=== PATIENT | female | born 1950 | race Caucasian/White ===

== ENCOUNTER 2017-10-18 13:25 | Emergency (ER) | payer OTHER, SELFPAY ==
[2017-10-18 13:41] VITALS: BP 150/88; PULSE 65; RESP 18; TEMP 36.4; O2SAT 98; BMI 25.0
--- NOTE | 2017-10-18 13:42 | DI.RAD.S_ITS ---
PROCEDURE: XR WRIST LT MIN 3V INDICATIONS: fall from hammock, left lateral wrist pain TECHNIQUE: 4 views of the wrist were acquired. COMPARISON: None. FINDINGS: Bones: Subtle cortical irregularity in the dorsal aspect of the distal radial metaphysis. No suspicious bony lesions. Scaphoid view: Scaphoid appears intact Soft tissues: No suspicious soft tissue calcifications. IMPRESSION: Possible undisplaced distal radial metaphyseal fracture. Dictated by: Janis Kilgore M.D. on 10/18/2017 at 14:15 Approved by: Janis Kilgore M.D. on 10/18/2017 at 14:16
--- NOTE | 2017-10-18 13:46 | PC.NURSE ---
lt lateral wrist pain after fall from hammock on to outstretched lt arm, distal cms, tender over lt lateral wrist/forearm, no visible sign of injury
--- NOTE | 2017-10-18 13:55 | ED.UPPEXIN ---
HPI - Extremity Injury (Upper) General Chief Complaint: Extremity Injury, Upper Stated Complaint: left arm pain Time Seen by Provider: 10/18/17 13:46 Source: patient Mode of arrival: ambulatory Limitations: no limitations History of Present Illness HPI narrative: 67-year-old female here for evaluation of left wrist injury. Patient states that she tried to sit on a Hammock and fell out landing on her left wrist with her wrist in extension. Did not hit her head. No shoulder pain no elbow pain. Does have pain with flexion extension of left wrist but especially with movement of her thumb. Related Data Home Medications Medication Instructions Recorded Confirmed albuterol sulfate [Ventolin HFA] 0 puff INH Q4HP #0 11/12/12 tolterodine [Detrol LA] 4 mg PO QDAY #0 11/12/12 Lactobacillus acidophilus 1 tab PO QDAY #0 04/04/16 ascorbic acid (vitamin C) 500 mg PO QDAY #0 04/04/16 calcium carbonate 650 mg PO #0 04/04/16 cholecalciferol (vitamin D3) 1,000 unit PO QDAY #0 04/04/16 [Vitamin D3] fluoxetine 20 mg PO QDAY #0 04/04/16 magnesium oxide 400 mg PO #0 04/04/16 meloxicam 15 mg PO QDAY #0 04/04/16 Allergies Allergy/AdvReac Type Severity Reaction Status Date / Time promethazine [PROMETHAZINE] Allergy Unknown ITCHING Unverified 07/15/17 11:45 UNKNOWN SEVERITY PER PT codeine [CODEINE] AdvReac Severe VOMITING Unverified 07/15/17 11:45 oxycodone [OXYCODONE] AdvReac Severe SEVERE Unverified 07/15/17 11:45 VOMITING hydrocodone [HYDROCODONE] AdvReac Mild VOMITING Unverified 07/15/17 11:45 Review of Systems Constitutional Denies fever(s) Musculoskeletal Comments: Left wrist pain Integumentary/Breasts Denies lesions and Denies rash Neurologic Comments: No numbness or tingling left hand Hematologic/Lymphatic Denies easy bleeding Exam Initial Vital Signs Initial Vital Signs: Vital Signs Temperature 97.6 F 10/18/17 13:41 Pulse Rate 65 10/18/17 13:41 Respiratory Rate 18 10/18/17 13:41 Blood Pressure 150/88 H 10/18/17 13:41 Pulse Oximetry 98 07/15/18 13:41 Const General: cooperative, healthy appearing, comfortable, well developed, well groomed and No acute distress Orientation: alert, awake and oriented x3 HENMT Head: normal to inspection, normocephalic and atraumatic Resp Effort & Inspection: normal respiratory effort Cardio Pulses: radial pulses present on the left Skin Lesions: no lesions Rashes: no rashes Neuro Other: Sensation intact to light touch left upper extremity Extrem Other: Left shoulder unremarkable, left elbow unremarkable, patient able to pronate and supinate without problems, patient with pain with flexion and extension of the left wrist and also with movement of the left thumb. Patient does have tenderness over the distal radius, no gross deformities, Course Orders Ordered: ED Orders 10/18/17 13:42 XR wrist LT min 3V Stat Vital Signs - 8 hr 10/18/17 13:41 Temperature 97.6 F Pulse Rate 65 Respiratory Rate 18 Blood Pressure 150/88 H Pulse Oximetry 98 MDM - Extremity Injury (Upper) Imaging Data Left wrist: Radiologist's impression: ROCEDURE: XR WRIST LT MIN 3V INDICATIONS: fall from hammock, left lateral wrist pain TECHNIQUE: 4 views of the wrist were acquired. COMPARISON: None. FINDINGS: Bones: Subtle cortical irregularity in the dorsal aspect of the distal radial metaphysis. No suspicious bony lesions. Scaphoid view: Scaphoid appears intact Soft tissues: No suspicious soft tissue calcifications. IMPRESSION: Possible undisplaced distal radial metaphyseal fracture. Dictated by: Janis Kilgore M.D. on 10/18/2017 at 14:15 MDM Narrative Medical decision making narrative: Patient is neurovascularly intact. History and physical exam consistent with a distal radius fracture which was seen on the x-ray. Patient is placed in a thumb spica splint. She already has an orthopedic doctor that she sees on a regular basis. She was instructed to call that provider tomorrow for a follow-up. She was given return precautions. She expressed understanding and agreement with plan Discharge Plan Departure Patient Disposition: Home, Self-Care Clinical Impression: Distal radius fracture, left Instructions: DI for Wrist Fracture, How to Take Care of Your Splint Activity Restrictions/Additional Instructions: Tomorrow call the [facility] group at [phone] to schedule a follow-up. Keep the splint on and keep it clean and keep it dry. Keep her arm elevated as much as possible. Return to the emergency department for any new or worsening symptoms Prescriptions: No Action albuterol sulfate [Ventolin HFA] 90 MCG/PUFF HFA aerosol inhaler INH Q4HP Qty: 0 RF: 0 tolterodine [Detrol LA] 4 MG capsule,extended release 24hr 4 mg PO QDAY Qty: 0 RF: 0 meloxicam 15 MG tablet 15 mg PO QDAY Qty: 0 RF: 0 ascorbic acid (vitamin C) 500 MG tablet 500 mg PO QDAY Qty: 0 RF: 0 fluoxetine 20 MG capsule 20 mg PO QDAY Qty: 0 RF: 0 cholecalciferol (vitamin D3) [Vitamin D3] 1,000 UNIT tablet 1,000 unit PO QDAY Qty: 0 RF: 0 calcium carbonate 650 MG tablet 650 mg PO Qty: 0 RF: 0 Lactobacillus acidophilus 1 EACH capsule 1 tab PO QDAY Qty: 0 RF: 0 magnesium oxide 400 MG capsule 400 mg PO Qty: 0 RF: 0
== END 2017-10-18 14:48 | disposition home or self-care (01) ==
PROVIDERS: Emergency Provider Emergency Medicine; Family Provider Family Medicine; PCP Family Medicine
DX: S52.502A Unspecified fracture of the lower end of left radius, initial encounter for closed fracture (principal); W17.89XA Other fall from one level to another, initial encounter
CPT/HCPCS: 29125; 73110; 99282; 99283

== ENCOUNTER → 2018-06-09 10:26 | Outpatient (CLI) | payer OTHER, SELFPAY ==
--- NOTE | 2018-06-09 | DI.MG.S_ITS ---
BILATERAL DIGITAL SCREENING MAMMOGRAM 3D/2D WITH CAD: 06/09/2018 CLINICAL: Routine screening. Family history of breast cancer. Comparison is made to exam dated: 08/26/2012 mammogram - [facility]. There are scattered fibroglandular elements in both breasts. Current study was also evaluated with a Computer Aided Detection (CAD) system. No significant masses, calcifications, or other findings are seen in either breast. There has been no significant interval change. IMPRESSION: NEGATIVE There is no mammographic evidence of malignancy. A 1 year screening mammogram is recommended. This exam was interpreted at Station ID: [id number]. NOTE: For mammograms, a report in lay terms will be sent to the patient. Approximately 15% of breast malignancies will not be visualized mammographically. In the management of a palpable breast mass, a negative mammogram must not discourage biopsy of a clinically suspicious lesion. Electronically Signed By: Contreras hayward/tiffany:06/09/2018 12:04:45 letter sent: Normal Exam ACR BI-RADS Category 1: Negative [id number]
== END ==
PROVIDERS: Family Provider Family Medicine; PCP Family Medicine; Visit Provider Family Medicine
DX: Z12.31 Encounter for screening mammogram for malignant neoplasm of breast (principal); Z80.3 Family history of malignant neoplasm of breast
CPT/HCPCS: 77063; 77067

== ENCOUNTER → 2018-08-16 14:14 | Outpatient (CLI) | payer OTHER, SELFPAY ==
--- NOTE | 2018-08-16 | DI.US.S_ITS ---
PROCEDURE: US ABD AORTA ANEURYSM SCREEN INDICATIONS: SCREENING FOR CARDIOVASCULAR DISEASE TECHNIQUE: Real time scanning was performed of the aorta and iliac arteries, with image documentation. COMPARISON: [facility], , ABDOMEN COMPLETE, 02/24/2011, 15:50. FINDINGS: Aorta: Proximal aortic diameter measures 2.2 cm. Mid-aorta measures 1.8 cm. Distal aortic diameter is 1.9 cm. Vascular calcifications indicate atherosclerosis. Iliac arteries: Right common iliac artery measures 1.5 cm. Left common iliac artery measures 1.5 cm. IMPRESSION: No abdominal aortic or proximal common iliac artery aneurysm. Dictated by: Ayush Sterling [facility] Interpreted: Myrna Gallo MD on 08/16/2018 at 15:49 Approved by: Myrna Gallo M.D. on 08/16/2018 at 16:18
== END ==
PROVIDERS: Family Provider Family Medicine; PCP Family Medicine; Visit Provider Nurse Practitioner Family
DX: Z13.6 Encounter for screening for cardiovascular disorders (principal)
CPT/HCPCS: 76706

== ENCOUNTER → 2019-01-12 13:04 | Outpatient (CLI) | payer OTHER, SELFPAY | PROVIDERS: PCP Family Medicine; Visit Provider Family Medicine | DX: Z13.820 Encounter for screening for osteoporosis (principal); Z78.0 Asymptomatic menopausal state; E11.9 Type 2 diabetes mellitus without complications; R29.890 Loss of height | CPT/HCPCS: 77080; 77081 ==

== ENCOUNTER → 2019-01-25 12:41 | Outpatient (CLI) | payer OTHER, SELFPAY ==
--- NOTE | 2019-01-25 | DI.MRI.S_ITS ---
PROCEDURE: MR LUMBAR SPINE WO/W CON INDICATIONS: Spinal stenosis, lumbar region with neurogenic cla TECHNIQUE: Noncontrast sagittal T1 spin echo and T2 fast spin echo, sagittal STIR, axial T1 and T2 fast spin echo through the lumbar spine. In cases with scoliosis, additional coronal T2 fast spin echo may be performed. After the administration of contrast, sagittal and axial T1 spin echo with fat saturation through the lumbar spine. COMPARISON: [facility], , MR LUMBAR SPINE WO/W CON, 08/13/2017, 14:45. [facility], MR, L-SPINE WITHOUT CONTRAST, 11/04/2016, 13:46. [facility], MR, L-SPINE WITHOUT CONTRAST, 06/25/2017, 9:22. [facility], MR, L-SPINE WITHOUT CONTRAST, 08/26/2012, 14:54. [facility], MR, L-SPINE WITHOUT CONTRAST, 04/04/2014, 10:13. [facility], CR, L-SPINE MINIMUM 4 VIEWS, 04/04/2014, 10:36. FINDINGS: Image quality: Diagnostic, with note made of motion artifact. Alignment and curvature: There is normal bony alignment. Marrow: Marrow is of normal overall signal. No acute vertebral body compression fractures. No suspicious marrow enhancement. Bone cement is again seen within L2. There is a Schmorl's node seen at the superior endplate of L2. There is a mild degree of edema seen along the posterior superior left aspect of the L3 vertebral body, with a mild degree of enhancement seen. Spinal cord: Conus medullaris terminates at the L1 level. Visualized spinal cord demonstrates normal signal, without suspicious seen. Paraspinous soft tissues: No paravertebral masses or abnormal enhancement. T12-L1: No significant abnormality is seen. L1-L2: Mild loss of disc height is seen. Loss of disc signal is seen. [id number] disc bulge is seen. There is mild right-sided and moderate left-sided neural foraminal narrowing seen. Mild to moderate central canal narrowing is seen. No significant change from the prior. L2-L3: Moderate loss of disc height is seen. Loss of disc signal is seen. Moderate disc bulge is seen, which is eccentric to the left. There is at least moderate bilateral facet hypertrophy seen. There is moderate hypertrophy of the ligamentum flavum. There is minimal right-sided and moderate left-sided neural foraminal narrowing seen. Moderate central canal narrowing is seen. Stable from the prior study. L3-L4: Mild to moderate loss of disc height and disc signal are seen. Moderate generalized disc bulge is seen. Moderate facet joint hypertrophy is seen. There is moderate right-sided and mild to moderate left-sided neural foraminal narrowing seen. When comparison is made with the prior examination, these findings are similar. L4-L5: Mild to moderate loss of disc height and disc signal are seen. Moderate disc bulge is seen, which is eccentric to the right. There is moderate bilateral facet hypertrophy seen, right worse than left. There is moderate to severe right-sided neural foraminal narrowing seen, with associated mild compression upon the exiting right or nerve root. There is mild left-sided neural foraminal narrowing seen. Mild central canal narrowing is seen. No significant change from the prior. L5-S1: Postoperative changes are seen at this level, prior left femoral neck. Mild to moderate loss of disc height and disc signal are seen. Moderate disc bulge is seen, which is eccentric to the left. There is a central/left disc protrusion seen. There is moderate left-sided and no significant right-sided neural foraminal narrowing seen. Moderate central canal narrowing is seen. When comparison is made with the prior examination, these findings are similar. IMPRESSION: Multiple levels of degenerative change are seen, which are similar to the prior examination. Bone cement within L2. Dictated by: Enoc Phan M.D. on 01/25/2019 at 15:24 Approved by: Enoc Phan M.D. on 01/25/2019 at 15:32
== END ==
PROVIDERS: PCP Family Medicine; Visit Provider Orthopaedic Surgery
DX: M48.062 Spinal stenosis, lumbar region with neurogenic claudication (principal); M48.07 Spinal stenosis, lumbosacral region; M47.816 Spondylosis without myelopathy or radiculopathy, lumbar region; M47.817 Spondylosis without myelopathy or radiculopathy, lumbosacral region
CPT/HCPCS: 72158

== ENCOUNTER → 2019-02-17 18:40 | Outpatient (CLI) | payer OTHER, SELFPAY ==
--- NOTE | 2019-02-17 | DI.MRI.S_ITS ---
PROCEDURE: MR SHOULDER RT WO CON INDICATIONS: Unspecified injury of muscle(s) and tendon(s) TECHNIQUE: Noncontrast oblique coronal T2 fast spin echo with fat saturation, oblique sagittal T1 spin echo and T2 fast spin echo with fat saturation, axial T1 spin echo and T2 fast spin echo with fat saturation through the shoulder. COMPARISON: None. FINDINGS: Image quality: Excellent. Rotator cuff: Sub-5 mm low signal focus seen in the region of the infraspinatus tendon raise the possibility of calcific tendinitis image 5 series 10 although this could be radiographically confirmed. Infraspinatus tendinopathy with high-grade partial thickness articular and bursal sided tear. Full-thickness tear of the supraspinatus tendon measuring 1.9 cm in AP dimension as seen on sagittal image 5 series 10. Teres minor appears intact the subscapularis tendon demonstrates mild tendinopathy and thickening, possible low-grade partial-thickness articular sided tear. Diffuse fatty infiltration of the supraspinatus and infraspinatus muscles. Borderline atrophy of the supraspinatus muscle or graft Bones and bursae: No bone marrow contusions or fractures. Moderate acromioclavicular joint degeneration. Acromion demonstrates conventional anatomy, without an os acromiale. Mild joint effusion. Possible small loose body seen in the region of the subscapular recess Capsule and soft tissues: Sublabral foramen noted. Diffuse circumferential mild fraying of the labrum suggesting, probably age-appropriate. Long head of the biceps tendinopathy and thickening although no definite complete rupture seen. Partial obliteration of the subcoracoid fat. Coracohumeral ligament intact. IMPRESSION: Full-thickness tear of the supraspinatus tendon as above. Borderline atrophy of the supraspinatus muscle Severe infraspinatus tendinopathy with high-grade partial-thickness bursal and articular sided tear. Possible infraspinatus calcific bursitis. This could be further assessed/confirmed with radiographs. Diffuse circumferential labral fraying, likely age-appropriate. Long head biceps tendinopathy. Possible small loose body as above. Dictated by: Benji Ochoa M.D. on 02/18/2019 at 9:51 Approved by: Benji Ochoa M.D. on 02/18/2019 at 10:00
== END ==
PROVIDERS: PCP Family Medicine; Visit Provider Internal Medicine Critical Care Medicine
DX: S46.011A Strain of muscle(s) and tendon(s) of the rotator cuff of right shoulder, initial encounter (principal); M19.011 Primary osteoarthritis, right shoulder; M25.411 Effusion, right shoulder; X58.XXXA Exposure to other specified factors, initial encounter
CPT/HCPCS: 73221

== ENCOUNTER → 2019-10-25 11:01 | Outpatient (CLI) | payer MEDICARE, SELFPAY ==
--- NOTE | 2019-10-25 | DI.MRI.S_ITS ---
PROCEDURE: MR KNEE RT WO CON INDICATIONS: Pain in right knee TECHNIQUE: Noncontrast sagittal PD fast spin echo and T2 fast spin echo with fat saturation, sagittal 3-D FLASH with fat saturation; coronal T1 spin echo and PD fast spin echo with fat saturation, and axial PD fast spin echo with fat saturation through the knee. COMPARISON: None. FINDINGS: Image quality: Excellent. Menisci: Medial extrusion of the medial meniscus is present. Linear oblique high T2 signal intensity traverses the posterior horn medial meniscus, demonstrating inferior articular surface extension. There is linear oblique high T2 signal intensity traversing the anterior horn and body of the lateral meniscus, demonstrating inferior articular surface extension. Moderately displaced radial tear of the posterior horn lateral meniscus. Cruciate ligaments: The anterior and posterior cruciate ligaments appear intact. Medial structures: The medial collateral ligament appears intact. Visualized portions of the pes anserinus tendons appear normal. No abnormal bursal fluid. Lateral structures: The lateral collateral ligament, long and short heads of the biceps femoris tendon appear intact. The popliteus tendon appears normal. Iliotibial band appears normal. Anterior structures: The quadriceps and patellar tendons appear intact. Patellar alignment is normal. No femoral trochlear dysplasia or ventral trochlear prominence. No edema in the infrapatellar fat pad. Bones and cartilage: No bone marrow contusions or fractures. There is mild subchondral degenerative marrow edema within the mid and posterior weight-bearing aspects of the lateral femoral condyle and lateral tibial plateau. Moderate tricompartmental periarticular osteophyte formation. Moderate cartilage loss diffusely realize the weight-bearing aspects of the medial femoral condyle and medial tibial plateau. Severe articular cartilage loss overlies the weight-bearing aspects of the lateral femoral condyle and lateral tibial plateau. Severe articular cartilage loss overlies the superior aspect of the patellar apex and adjacent portion of the medial patellar facet. Joint space: There is a small knee joint effusion, a small ganglion cyst along the popliteus, and a small Alonso's cyst. Small intra-articular loose bodies within the posterior central aspect of the knee joint are present, largest of which measures 5 mm. Normal appearing synovial plicae are incidentally noted. IMPRESSION: 1. Tricompartmental osteoarthritis with associated articular cartilage loss. 2. Medial and lateral meniscal tearing. 3. Knee joint effusion, Alonso's cyst, and intra-articular loose bodies. Small ganglion cyst along the popliteus. Dictated by: Ildefonso Deutsch M.D. on 10/25/2019 at 15:12 Approved by: Ildefonso Deutsch M.D. on 10/25/2019 at 15:16
== END ==
PROVIDERS: PCP Family Medicine; Referring Provider Orthopaedic Surgery; Visit Provider Orthopaedic Surgery
DX: M25.561 Pain in right knee (principal); S83.281A Other tear of lateral meniscus, current injury, right knee, initial encounter; S83.241A Other tear of medial meniscus, current injury, right knee, initial encounter; M17.11 Unilateral primary osteoarthritis, right knee; M25.461 Effusion, right knee; M71.21 Synovial cyst of popliteal space [Baker], right knee; M67.461 Ganglion, right knee
CPT/HCPCS: 73721

== ENCOUNTER → 2020-03-20 10:37 | Outpatient (CLI) | payer MEDICARE, SELFPAY ==
--- NOTE | 2020-03-20 | DI.MRI.S_ITS ---
PROCEDURE: MR LUMBAR SPINE WO CON INDICATIONS: Wedge compression fracture TECHNIQUE: Noncontrast sagittal T1 spin echo and T2 fast echo, sagittal STIR, axial T1 and T2 fast spin echo through the lumbar spine. In cases with scoliosis, additional coronal T2 fast spin echo may be performed. COMPARISON: [facility], MR, MR LUMBAR SPINE WO/W CON, 01/25/2019, 12:58. [facility] [place], CR, XR LUMBAR SPINE 2 OR 3 VIEWS, 02/27/2020, 16:43. [facility], MR, L-SPINE WITHOUT CONTRAST, 06/25/2017, 9:22. FINDINGS: Image quality: Excellent. Alignment and Curvature: 5 lumbar type vertebral bodies are present by plain film. There is mild grade 1 retrolisthesis of L1 on L2. Bone Marrow: Marrow is of normal overall signal. No acute vertebral body compression fractures. Bony cement injection at L2 has been performed, as before. Mild reactive signal within the endplates adjacent to the T12-L1, L1-L2, L2-L3, L3-L4, L4-L5, and L5-S1 intervertebral discs. Spinal Cord: Conus medullaris terminates at the L1-L2 disc space level. Visualized cord demonstrates normal signal and size. Paraspinous Soft Tissues: No paravertebral masses. Retroaortic left renal vein. L1-L2: Moderate disc height loss and desiccation. Moderate diffuse disc bulge. Mild facet and ligamentum flavum hypertrophy. Mild epidural lipomatosis. Mild canal stenosis. Moderate left and mild right foraminal stenosis. No change. L2-L3: Moderate disc height loss and desiccation. Mild diffuse disc bulge with superimposed broad-based left posterolateral protrusion. Mild facet and ligamentum flavum hypertrophy. Mild epidural lipomatosis. Increased, moderate canal stenosis. No change in mild left greater than right foraminal stenosis. L3-L4: Moderate disc height loss and desiccation. Mild diffuse disc bulge with superimposed right far lateral protrusion. Mild facet and ligamentum flavum hypertrophy. Mild epidural lipomatosis. Moderate canal stenosis. Moderate right and mild left foraminal stenosis. No change. L4-L5: Moderate disc height loss and desiccation. Mild diffuse disc bulge with superimposed right far lateral broad-based protrusion. Mild facet and ligamentum flavum hypertrophy. Mild canal stenosis. Moderate to severe right and mild left foraminal stenosis. Right L4 nerve root compression. No change. L5-S1: Moderate disc height loss and desiccation. Mild diffuse disc bulge with superimposed broad-based left posterolateral protrusion. Mild bilateral facet hypertrophy. Mild canal stenosis. Moderate left and mild right foraminal stenosis. No change. IMPRESSION: 1. Multilevel degenerative disc and facet disease, as well as ligamentum flavum hypertrophy and epidural lipomatosis. 2. Multilevel canal stenosis, worst at L2-L3 and L3-L4, where there are moderate canal stenosis present. 3. Multilevel foraminal stenoses, worst at L4-L5 where there is associated intraforaminal nerve root compression. Recommend correlation with clinical symptoms to ascertain relevance of this finding. Dictated by: Ildefonso Deutsch M.D. on 03/20/2020 at 11:50 Approved by: Ildefonso Deutsch M.D. on 03/20/2020 at 13:25
== END ==
PROVIDERS: PCP Family Medicine; Referring Provider Orthopaedic Surgery; Visit Provider Orthopaedic Surgery
DX: S32.000A Wedge compression fracture of unspecified lumbar vertebra, initial encounter for closed fracture (principal); M54.5 Low back pain; M51.36 Other intervertebral disc degeneration, lumbar region; M51.37 Other intervertebral disc degeneration, lumbosacral region; M48.061 Spinal stenosis, lumbar region without neurogenic claudication; M48.07 Spinal stenosis, lumbosacral region; E88.2 Lipomatosis, not elsewhere classified
CPT/HCPCS: 72148

== ENCOUNTER 2020-04-08 11:02 | Emergency (ER) | payer MEDICARE, SELFPAY ==
[2020-04-08 11:18] VITALS: BP 164/99; PULSE 89; RESP 18; TEMP 36.5; O2SAT 97; BMI 30.1
--- NOTE | 2020-04-08 11:29 | DI.RAD.S_ITS ---
PROCEDURE: XR SHOULDER LT MIN 2V INDICATIONS: nontraumatic left shoulder pain radiating to fingers with nu TECHNIQUE: 3 views of the shoulder were acquired. COMPARISON: [facility] [place], CR, XR SHOULDER 2+ VIEWS BILATERAL, 12/21/2019, 15:36. FINDINGS: Bones: No fractures or dislocations. No suspicious bony lesions. There is moderate glenohumeral joint degeneration and mild acromioclavicular joint degeneration. Visualized ribs appear intact. Soft tissues: No suspicious soft tissue calcifications. IMPRESSION: 1. No acute osseous abnormalities. 2. Degenerative joint disease. Dictated by: Janis Kilgore M.D. on 04/08/2020 at 11:52 Approved by: Janis Kilgore M.D. on 04/08/2020 at 11:55
--- NOTE | 2020-04-08 11:33 | ED_ITS ---
HPI - Extremity Problem <TINO Mcclain - Last Filed: 04/08/20 12:30> General Chief complaint: Extremity Problem,Nontraumatic Stated complaint: left shoulder injury 3 years recent flare Time Seen by Provider: 04/08/20 11:05 Source: patient Mode of arrival: Family Vehicle Limitations: no limitations History of Present Illness HPI Narrative: This is a 70-year-old female, nonsmoker, who has past medical history significant for hypertension, hyperlipidemia, diabetes, shoulder injury, back pain presents to ED with chief complain of nontraumatic severe left anterior and posterior shoulder pain radiating down to mostly to index finger for 1 week. 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 Patient reports she had initially injured bilateral shoulder 3 years ago from FOOSH. That time right shoulder pain was worse and received treatment from Dr. Casiano and had physical therapist. Patient denies chest pain, dyspnea, dizziness, fever, warmth or redness to affected site. Reports had some twinging sensation in left fingers 2 weeks prior the shoulder pain started. Patient has been nauseated from severe pain. Patient reports she has been sleeping sitting up last 1 week since pain worsens with supine position, range of motion on left shoulder. She now also has some neck pain from slipping on a chair sitting up. Pain improves when she keep her left arm close to her upper body. She reports intact sensation and is able to move her fingers. Patient and her was in [place] vacationing when she woke up with the pain and she returned to town today. P carlos reports she has allergy to all known opioids but is able to tolerate tramadol. Patient contacted Dr. Casiano office and nurse suggested going to emergency room for an evaluation and possible medications for rest at night. She reports has an appointment with Dr. Casiano this coming Thursday for shoulder evaluation and injection on her back for pain management. Patient also is requesting COVID test before the appointment with Dr. Casiano. Patient also is currently taking meloxicam daily for arthritis. She had taken Tylenol and ibuprofen in addition to meloxicam 1st 2 days with onset of pain only but felt sick so stopped. Related Data Home Medications Medication Instructions Recorded Confirmed albuterol sulfate [Ventolin HFA] 0 puff INH Q4HP #0 11/12/12 tolterodine [Detrol LA] 4 mg PO QDAY #0 11/12/12 Lactobacillus acidophilus 1 tab PO QDAY #0 04/04/16 ascorbic acid (vitamin C) 500 mg PO QDAY #0 04/04/16 calcium carbonate 650 mg PO #0 04/04/16 cholecalciferol (vitamin D3) 1,000 unit PO QDAY #0 04/04/16 [Vitamin D3] magnesium oxide 400 mg PO #0 04/04/16 meloxicam 15 mg PO QDAY #0 04/04/16 fluoxetine mg 04/08/20 hydrochlorothiazide 04/08/20 losartan 04/08/20 metoprolol tartrate 04/08/20 rosuvastatin mg 04/08/20 sitagliptin [Januvia] mg 04/08/20 Previous Rx's Medication Instructions Recorded diazepam [Valium] 5 mg PO BEDTIME PRN #7 tab 04/08/20 ondansetron 4 mg PO BID-TID PRN #7 tab 04/08/20 tramadol 50 mg PO TID PRN #10 tab 04/08/20 Allergies Allergy/AdvReac Type Severity Reaction Status Date / Time promethazine [PROMETHAZINE] Allergy Unknown ITCHING Verified 04/08/20 11:18 UNKNOWN SEVERITY PER PT codeine [CODEINE] AdvReac Severe VOMITING Verified 04/08/20 11:18 oxycodone [OXYCODONE] AdvReac Severe SEVERE Verified 04/08/20 11:18 VOMITING hydrocodone [HYDROCODONE] AdvReac Mild VOMITING Verified 04/08/20 11:18 Review of Systems <Aurelio Rik [facility] - Last Filed: 04/08/20 12:30> Review of Systems Narrative: General: Denies fever, chills, fatigue, malaise, sweats. HEENT: Denies sinus pain, ear pain, sore throat, difficulty swallowing, dizziness. Respiratory: Denies dyspnea, cough, wheezing, hemoptysis, sputum. Cardiovascular: Denies chest pain, palpitations, orthopnea, edema. Gastrointestinal: Denies (+) nausea, vomiting, abdominal pain, diarrhea, constipation, melena. : Denies dysuria, frequency, incontinence, hematuria, urinary retention. Musculoskeletal: See HPI Skin: Denies rash, skin lesions, or other. Neurologic: Denies weakness, headache, numbness, change in speech, confusion, seizures, incoordination. Psychiatric: No concerning psychosocial issues. 12-point review of systems is negative except for those stated above. Patient History <Aurelio WongTINO De La Torre - Last Filed: 04/08/20 12:30> Medical History Arthritis Back pain Depression Hyperlipidemia Hypertension Shoulder injury Social History (Updated 04/08/20 @ 11:42 by TINO Mcclain) Smoking Status: Never smoker Smoking Status: Never smoker alcohol intake frequency: 0-2 drinks per day Substance Use Type: marijuana Exam <TINO Mcclain - Last Filed: 04/08/20 12:30> Narrative Exam Narrative: GEN: Alert, oriented x 3, well appearing and nourished, and moderate distress from pain. Head: Normal cephalic, atraumatic. No scalp or temporal tenderness, palpable mass or rash. EYES: Pupils are equal, round, and reactive to light and accommodation. Extraocular muscles are intact bilaterally. There is no subconjunctival hemorrhage, exudate and sclera non-icteric. ENT: Hearing grossly intact. Mucous membrane dry, no mucosal lesion. Throat without erythema, tonsillar hypertrophy or exudate. Uvula in midline, airway patent. Neck: Trachea in midline. No JVD, non-tender without lymphadenopathy. No masses or thyroid megaly. Supple, non-tender and no meningeal signs. CARDIAC: Normal regular rate and rhythm without murmurs, gallops, or rubs. No chest wall tenderness. No peripheral edema, cyanosis or pallor. Capillary refill is less than 2 seconds. RESPIRATORY: Lungs are clear to auscultate bilaterally. No cough, wheezes, rales, or rhonchi. No stridor, respiratory distress, increase work of breathing, or accessary muscle used. ABD: Abdomen soft, nontender and non-distended. No guarding or rebound tenderness to palpate. Bowel sounds are normal in all 4 quadrants. There is no palpable masses or organomegaly. SKIN: Warm, dry, normal color for patient. No erythema, lesions or rash over visible areas. BACK: Nontender without deformity or crepitance. No flank tenderness. NEUROLOGICAL: Alert and oriented to place, time and person. Sensation and motor function intact bilaterally. No facial droops, dysphasia. PSYCHIATRIC: Good judgement and reason, without hallucinations, abnormal affect or abnormal behaviors during the examination. Patient is not suicidal. Initial Vital Signs Initial Vital Signs: Vital Signs Temperature 97.7 F 04/08/20 11:18 Pulse Rate 89 04/08/20 11:18 Respiratory Rate 18 04/08/20 11:18 Blood Pressure 164/99 H 04/08/20 11:18 Pulse Oximetry 97 04/08/20 11:18 Extrem Left upper extremity: normal to inspection, shoulder/upper arm Details: inspection abnormal, tenderness Location: of the A-C joint and over the subacromial bursa and abnormal ROM Details: held in an abnormal fashion Details: in ABduction, pain with active ROM, pain with passive ROM and with range as follows (unable to forward flex, limited abduction and adduction. Unable to internally rotate); no swelling, no ecchymosis, no deformity and no unsual warmth, wrist Details: normal to inspection, normal ROM, normal vascular exam and radial pulse present; no deformity and hand Details: normal to inspection, normal capillary refill, neuromotor exam normal, neurosensory exam normal, normal ROM of fingers and no swelling <Maxwell Davila DO - Last Filed: 04/08/20 14:54> Initial Vital Signs Initial Vital Signs: Vital Signs Temperature 97.7 F 04/08/20 11:18 Pulse Rate 89 04/08/20 11:18 Respiratory Rate 18 04/08/20 11:18 Blood Pressure 164/99 H 04/08/20 11:18 Pulse Oximetry 97 04/08/20 11:18 Procedures <TINO Mcclain - Last Filed: 04/08/20 12:30> Orthopedic Splinting/Casting Injury #1: Side: left Upper Extremity Injury Location: shoulder Upper Extremity Immobilizer: sling/shoulder immobilizer Post splinting neuro exam: intact Post splinting vascular exam: intact Placed by: Nursing Scores <TINO Mcclain - Last Filed: 04/08/20 12:30> GCS Priddy coma scale eye opening: Spontaneous Priddy coma scale verbal response: Orientated Radha coma scale motor response: Obey commands Priddy coma scale total score: 15 Course <TINO Mcclain Last Filed: 04/08/20 12:30> Orders Ordered: ED Orders 04/08/20 11:29 XR shoulder LT min 2V Stat 04/08/20 11:46 COVID19 Stat Discontinued Medications Acetaminophen (Acetaminophen 325 Mg Tablet) 650 mg PO NOW ONE Stop: 04/08/20 11:30 Last Admin: 04/08/20 11:49 Dose: 650 mg Documented by: ZEN Ondansetron HCl (Ondansetron 4 Mg Odt) 4 mg SL NOW ONE Stop: 04/08/20 11:34 Last Admin: 04/08/20 11:50 Dose: 4 mg Documented by: ZEN Vital Signs Vital signs: Vital Signs - 8 hr 04/08/20 11:18 Temperature 97.7 F Pulse Rate 89 Respiratory Rate 18 Blood Pressure 164/99 H Pulse Oximetry 97 <Maxwell Davila DO - Last Filed: 04/08/20 14:54> Orders Ordered: ED Orders 04/08/20 11:29 XR shoulder LT min 2V Stat 04/08/20 11:46 COVID19 Stat Discontinued Medications Acetaminophen (Acetaminophen 325 Mg Tablet) 650 mg PO NOW ONE Stop: 04/08/20 11:30 Last Admin: 04/08/20 11:49 Dose: 650 mg Documented by: ZEN Ondansetron HCl (Ondansetron 4 Mg Odt) 4 mg SL NOW ONE Stop: 04/08/20 11:34 Last Admin: 04/08/20 11:50 Dose: 4 mg Documented by: ZEN Vital Signs Vital signs: Vital Signs - 8 hr 04/08/20 11:18 Temperature 97.7 F Pulse Rate 89 Respiratory Rate 18 Blood Pressure 164/99 H Pulse Oximetry 97 MDM - Extremity (Nontraumatic) <TINO Mcclain - Last Filed: 04/08/20 12:30> Differential Diagnosis Differential diagnosis: Likely other (Shoulder impingement, bursitis, rotator cuff injury, arthritis) Medical Records Attestation: I reviewed the patient's medical records. Lab Data Labs: Lab Results 04/08/20 Range/Units 11:46 SARS-CoV-2 (PCR) Negative (Negative) Imaging Data XR-Shoulder LT: Radiologist's Impression: [address] [id number] ReportSigned Patient: Ashok Mosquedail JMR#: [id number]: 1950cct:[id number]/Sex: 70 / FDate of Service: 04/08/20Loc: EDAccession Number: [id number] Procedure: XR shoulder LT min 2V Ordering Provider: Aurelio Jolly PROCEDURE: XR SHOULDER LT MIN 2V INDICATIONS: nontraumatic left shoulder pain radiating to fingers with nu TECHNIQUE: 3 views of the shoulder were acquired. COMPARISON: [facility], CR, XR SHOULDER 2+ VIEWS BILATERAL, 12/21/2019, 15:36. FINDINGS: Bones: No fractures or dislocations. No suspicious bony lesions. There is moderate glenohumeral joint degeneration and mild acromioclavicular joint degeneration. Visualized ribs appear intact. Soft tissues: No suspicious soft tissue calcifications. IMPRESSION: 1. No acute osseous abnormalities. 2. Degenerative joint disease. Dictated by: Janis Kilgore M.D. on 04/08/2020 at 11:52 Approved by: Janis Kilgore M.D. on 04/08/2020 at 11:55 [facility] Narrative Medical decision making narrative: This is a 70 year female presents to ED with nontraumatic left anterior and posterior shoulder with decreased active and passive range of motion for 1 week while she was vacationing in [facility]. Reports pain radiates down to index finger with some numbness. 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 Patient reports initially injured bilateral shoulder from FOOSH 3 years ago and had received treatment only on right shoulder which improved with a injection and physical therapy. Patient reports pain improves with abduction of left arm. AC joint without swelling, redness, or warmth. Patient does not reports constitutional symptoms. Patient does not report other cardiac symptoms such as chest pain, dyspnea, or dizziness. X-ray test shows DJD without acute findings such as fractures or dislocations. Patient has intact sensation and is able to move all fingers. Intact radial pulse and cap refills. Patient provided with shoulder immobilizer with instructions for gentle stretching and exercise several times a day on affected shoulder to prevent frozen shoulder. Discharged to home with few tabs of tramadol which patient can tolerate from past experience and Valium for slipped and muscle relaxant with strict instructions on narcotic/benzodiazepine precautions. Zofran provided for nausea and instructed adequate oral hydration. Patient has follow-up appointment with Dr. Casiano in 3 days for further assessment and treatment. Return precautions discussed with patient and she verbalized understanding in agreement with the treatment plan. <Maxwell Davila, DO - Last Filed: 04/08/20 14:54> Lab Data Labs: Lab Results 04/08/20 Range/Units 11:46 SARS-CoV-2 (PCR) Negative (Negative) Discharge Plan Departure Patient Disposition: Home Clinical Impression: Acute shoulder pain Qualifiers: Laterality: left Qualified Code(s): M25.512 - Pain in left shoulder Instructions: DI for Shoulder Pain Activity Restrictions/Additional Instructions: You have been diagnosed with [left shoulder pain. Xray test shows no fracture or dislocation but degenerate joint disease. Covid test was negative]. What to do: *Take your medications as directed. You can take Tylenol 650 to 1000 mg up to 3 to 4 times a day as needed. Tramadol for severe pain. This is narcotic pain medications which you had taken safely before. Please take precautions for sedation and constipation. Please do not drive, drink alcohol, or operate heavy equipments. Valium at night to help with sleep. Please try half of the tab 1st if your sensitive to benzodiazepine. Please try not to take Valium and tramadol together since he can cause increase in sedation. Zofran as needed for nausea. This medication have been transmitted to [facility]. *Follow up with your primary care provider in 2-3 days, call for an appointment. Please follow-up with Dr. Casiano as scheduled on Thursday. Let them know you were seen in the ED and that we asked you to be seen in follow up. *Return to ED if you have any new, worsening, or concerning symptoms, such as [chest pain, dyspnea, vomiting, dizziness, fever, worsening pain or any acute concerns]. Prescriptions: New tramadol 50 mg tablet 50 mg PO TID PRN (Reason: pain) Qty: 10 RF: 0 diazepam [Valium] 5 mg tablet 5 mg PO BEDTIME PRN (Reason: muscle spasm) Qty: 7 RF: 0 ondansetron 4 mg tablet,disintegrating 4 mg PO BID-TID PRN (Reason: nausea and vomiting) Qty: 7 RF: 0 No Action albuterol sulfate [Ventolin HFA] 90 MCG/PUFF HFA aerosol inhaler 0 puff INH Q4HP Qty: 0 RF: 0 tolterodine [Detrol LA] 4 MG capsule,extended release 24hr 4 mg PO QDAY Qty: 0 RF: 0 meloxicam 15 MG tablet 15 mg PO QDAY Qty: 0 RF: 0 ascorbic acid (vitamin C) 500 MG tablet 500 mg PO QDAY Qty: 0 RF: 0 cholecalciferol (vitamin D3) [Vitamin D3] 1,000 UNIT tablet 1,000 unit PO QDAY Qty: 0 RF: 0 calcium carbonate 650 MG tablet 650 mg PO Qty: 0 RF: 0 Lactobacillus acidophilus 1 EACH capsule 1 tab PO QDAY Qty: 0 RF: 0 magnesium oxide 400 MG capsule 400 mg PO Qty: 0 RF: 0 fluoxetine 40 mg capsule RF: 0 Januvia 100 mg tablet RF: 0 hydrochlorothiazide 25 mg tablet RF: 0 losartan 50 mg tablet RF: 0 rosuvastatin 20 mg tablet RF: 0 metoprolol tartrate 50 mg tablet RF: 0 Referrals: Jeffrey Valentin MD [Primary Care Provider] - Melissa Casiano MD [Physician] - <Maxwell Davila DO - Last Filed: 04/08/20 14:54> Cosign [facility] Att[facility]: I was immediately available in the department for consultation. This documentation has been reviewed and I agree with assessment and plan. Supervised by Maxwell Davila DO
[2020-04-08] MEDS: ACETAMINOPHEN 325 MG TABLET 650 MG PO (11:49)
[2020-04-08] MEDS: ONDANSETRON 4 MG ODT SL (11:50)
[2020-04-08 12:15] LABS: COVID19 -Nasal RAPID Negative (Negative)
== END 2020-04-08 12:36 | disposition home or self-care (01) ==
PROVIDERS: Emergency Provider Nurse Practitioner Family; PCP Family Medicine
DX: M25.512 Pain in left shoulder (principal); R11.0 Nausea; R20.0 Anesthesia of skin; Z88.6 Allergy status to analgesic agent; Z20.822 Contact with and (suspected) exposure to COVID-19
CPT/HCPCS: 73030; 87635; 99281; 99283

== ENCOUNTER → 2020-10-25 08:50 | Outpatient (CLI) | payer MEDICARE, SELFPAY ==
[2020-10-25 19:31] LABS: Add Manual Diff / Slide Review NO; Basophils Absolute Auto 0 /uL (0-100); Basophils Percent Auto 0.5 % (0-2); Eosinophils Absolute Auto 200 /uL (0-450); Eosinophils Percent Auto 1.9 % (2-4); Hematocrit 41.7 % (36-46); Hemoglobin 13.9 g/dL (12.0-16.0); Lymphocytes Absolute Auto 1600 /uL (1100-4500); Mean Corpuscular HGB Conc 33.4 % (30-36); Mean Corpuscular Hemoglobin 31.5 PG (26-34); Mean Corpuscular Volume 94.4 fL (80-100); Monocytes Absolute Auto 700 /uL (0-900); Monocytes Percent Auto 7.8 % (3-14); Neutrophils Absolute Auto 6100 /uL (1500-7000); Neutrophils Percent Auto 70.8 % (50-75); Platelet Count 184 X10^3/uL (150-400); Red Blood Cell Count 4.42 X10^6/uL (4.0-5.2); Red Cell Distribution Width 13.6 % (11.6-14.8); White Blood Cell Count 8.6 X10^3/uL (4.5-11.0)
[2020-10-25 19:47] LABS: Alanine Aminotransferase 20 IU/L (<35); Albumin Globulin Ratio 1.6 (1.0-2.8); Alkaline Phosphatase 63 U/L (38-126); Aspartate Aminotransferase 28 IU/L (14-36); BUN Creatinine Ratio 30.1 (6-22); Bilirubin Total 0.4 mg/dL (0.2-1.3); Blood Urea Nitrogen 22 mg/dL (7-17); Calcium 9.6 mg/dL (8.4-10.2); Carbon Dioxide 31 mmol/L (22-32); Chloride 101 mmol/L (98-107); Cholesterol 151 mg/dL (140-199); Estimated Glomerular Filt Rate > 60.0 mL/min (>60); Globulin 2.5 g/dL (1.7-4.1); Glucose 139 mg/dL (80-110); HDL Cholesterol 49 mg/dL (40-60); HEMOLYSIS < 15 (0-50); LDL Cholesterol Calculated 70 mg/dL (<100); Potassium 4.6 mmol/L (3.4-5.1); Sodium 137 mmol/L (137-145); Total Protein 6.5 g/dL (6.3-8.2); Triglycerides 160 mg/dL (35-150)
[2020-10-25 20:10] LABS: Hemoglobin A1C% w Est Avg Glu 7.2 % (4.0-6.0)
[2020-10-25 20:16] LABS: Thyroid Stimulating Hormone 5.24 uIU/mL (0.47-4.68)
== END ==
PROVIDERS: PCP Family Medicine; Referring Provider Physician Assistant; Visit Provider Physician Assistant
DX: E11.9 Type 2 diabetes mellitus without complications (principal); I10 Essential (primary) hypertension; M25.50 Pain in unspecified joint; R73.01 Impaired fasting glucose
CPT/HCPCS: 80053; 80061; 83036; 84443; 85025

== ENCOUNTER → 2020-10-31 10:45 | Outpatient (CLI) | payer MEDICARE, SELFPAY ==
[2020-10-31 20:09] LABS: TSH w/ Reflex to FT4 2.44 uIU/mL (0.47-4.68)
== END ==
PROVIDERS: PCP Physician Assistant; Visit Provider Physician Assistant
DX: E03.9 Hypothyroidism, unspecified (principal)
CPT/HCPCS: 84443

== ENCOUNTER → 2020-11-22 13:54 | Outpatient (CLI) | payer MEDICARE, SELFPAY ==
[2020-11-22 18:27] LABS: RBC Urine None Seen (0-5/HPF)
[2020-11-22 18:40] LABS: Add Manual Diff / Slide Review NO; Basophils Absolute Auto 0 /uL (0-100); Basophils Percent Auto 0.6 % (0-2); Eosinophils Absolute Auto 100 /uL (0-450); Eosinophils Percent Auto 1.8 % (2-4); Hematocrit 39.3 % (36-46); Hemoglobin 13.3 g/dL (12.0-16.0); Lymphocytes Absolute Auto 2000 /uL (1100-4500); Lymphocytes Percent Auto 26.5 % (25-40); Mean Corpuscular HGB Conc 33.8 % (30-36); Mean Corpuscular Hemoglobin 31.4 PG (26-34); Mean Corpuscular Volume 92.8 fL (80-100); Monocytes Absolute Auto 500 /uL (0-900); Monocytes Percent Auto 7.3 % (3-14); Neutrophils Absolute Auto 4800 /uL (1500-7000); Neutrophils Percent Auto 63.8 % (50-75); Platelet Count 194 X10^3/uL (150-400); Red Blood Cell Count 4.23 X10^6/uL (4.0-5.2); Red Cell Distribution Width 13.7 % (11.6-14.8); White Blood Cell Count 7.5 X10^3/uL (4.5-11.0)
[2020-11-22 18:54] LABS: BUN Creatinine Ratio 30.4 (6-22); Blood Urea Nitrogen 24 mg/dL (7-17); Calcium 9.3 mg/dL (8.4-10.2); Carbon Dioxide 31 mmol/L (22-32); Chloride 99 mmol/L (98-107); Estimated Glomerular Filt Rate > 60.0 mL/min (>60); Glucose 138 mg/dL (80-110); HEMOLYSIS < 15 (0-50); Potassium 4.1 mmol/L (3.4-5.1); Sodium 138 mmol/L (137-145)
[2020-11-22 19:04] LABS: Hemoglobin A1C% w Est Avg Glu 7.1 % (4.0-6.0)
[2020-11-22 19:31] LABS: Appearance Urine UA CLEAR; Bilirubin Urine UA NEGATIVE (NEGATIVE); Color Urine UA YELLOW; Glucose Urine UA NEGATIVE (Negative); Ketones Urine UA NEGATIVE (NEGATIVE); Leukocyte Esterase Urine UA NEGATIVE (NEGATIVE); Nitrite Urine UA NEGATIVE (Negative); Occult Blood Urine UA NEGATIVE (Negative); Protein Urine UA TRACE (Negative); Specific Gravity Urine UA 1.015 (1.000-1.035); Urobilinogen Urine UA 0.2 E.U./dL (0.2)
[2020-11-22 20:05] LABS: Amorphous Sediment Urine 1+; Bacteria Urine Moderate (10-30); Culture Indicated Urine Specimen Cultured; Mucus Urine 1+ (Negative); Squamous Epithelial Cell Urine 5-10 /HPF (0-5/HPF); WBC Urine 1-5/HPF (0-5/HPF)
== END ==
PROVIDERS: PCP Physician Assistant; Referring Provider Orthopaedic Surgery; Visit Provider Orthopaedic Surgery
DX: Z01.812 Encounter for preprocedural laboratory examination (principal); N39.0 Urinary tract infection, site not specified; R73.9 Hyperglycemia, unspecified; Z01.818 Encounter for other preprocedural examination
CPT/HCPCS: 80048; 81001; 83036; 85025; 87086

== ENCOUNTER → 2021-04-30 09:23 | Outpatient (CLI) | payer MEDICARE, SELFPAY ==
--- NOTE | 2021-04-30 | DI.RAD.S_ITS ---
PROCEDURE: XR DEXA AXIAL SKELETON INDICATIONS: ARTHRITIS OF RIGHT ACROMICOVLAVICULAR JOINT COMPARISON: [facility], CR, XR DEXA AXIAL SKELETON, 01/12/2019, 13:51. FINDINGS: This blank DEXA report has been sent in error by the PACS system. The correct and complete report will be forthcoming in 1-2 days. Thank you for your patience and understanding. Dictated by: Sunshine Dial MD, PhD on 04/30/2021 at 16:56 Approved by: Sunshine Dial MD, PhD on 04/30/2021 at 16:56
== END ==
PROVIDERS: PCP Family Medicine; Referring Provider Orthopaedic Surgery; Visit Provider Orthopaedic Surgery
DX: M19.011 Primary osteoarthritis, right shoulder (principal); Z78.0 Asymptomatic menopausal state; E11.9 Type 2 diabetes mellitus without complications; Z82.62 Family history of osteoporosis
CPT/HCPCS: 77080

== ENCOUNTER → 2022-02-19 13:36 | Outpatient (CLI) | payer MEDICARE, SELFPAY ==
[2022-02-19 14:17] LABS: COVID19 -Nasal RAPID Negative (Negative)
== END ==
PROVIDERS: PCP Family Medicine; Referring Provider Internal Medicine; Visit Provider Internal Medicine
DX: Z20.822 Contact with and (suspected) exposure to COVID-19 (principal)
CPT/HCPCS: 87635; C9803

== ENCOUNTER → 2022-02-19 13:37 | Outpatient (CLI) | payer MEDICARE, SELFPAY ==
--- NOTE | 2022-03-12 10:51 | PM.PFT.1 ---
Pulmonary Function Test Referral & Results Date Patient Seen: 02/19/22 Requesting provider: Sterling Mcclain Results: The spirometry demonstrates an FVC of 2.73 L which is 78% of predicted. The FEV1 was measured at 1.84 L which is 70% of predicted. The FEV1/FVC ratio was 68 which is 89% of predicted. Following the administration of bronchodilator there was a 17% improvement in FEV1 and a 76% improvement in FEF 25-75%. Lung volumes show an SVC of 3.02 L which is 93% of predicted. The diffusing capacity was measured at 5.50 which is 18% of predicted. The maximum voluntary ventilation was reduced Interpretation: This study demonstrates moderate obstructive lung disease based on reduction FEV1 and minimal reduction FEV1/FVC ratio. There is evidence of benefit following bronchodilator particularly small airway flow based on improvement in FEF 25-75% as above Lung volumes are normal There is a severe reduction diffusing capacity suggesting severe disease at the capillary alveolar level to the point where patient is likely hypoxic at times on room air Clinical correlation suggested
== END ==
PROVIDERS: PCP Family Medicine; Referring Provider Nurse Practitioner; Visit Provider Nurse Practitioner
DX: R06.09 Other forms of dyspnea (principal); J45.909 Unspecified asthma, uncomplicated; Z20.822 Contact with and (suspected) exposure to COVID-19
CPT/HCPCS: 87635; 94060; 94726; 94729; C9803

== ENCOUNTER → 2022-03-10 09:19 | Outpatient (CLI) | payer MEDICARE, SELFPAY ==
[2022-03-10 09:58] LABS: COVID19 -Nasal RAPID Negative (Negative)
--- NOTE | 2022-03-10 12:53 | DI.ECHO.S_ITS ---
Interpretation Summary 1) Normal left ventricular thickness, size, wall motion, and systolic function (EF 55-60%). 2) Normal right ventricular size and function. 3) No significant valvular abnormalities. 4) The right ventricular systolic pressure is estimated to be at least 17 mmHg based on an estimated right atrial pressure of 3 mm Hg. 5) No prior Echo available for comparison. Procedure: A two-dimensional transthoracic echocardiogram with color flow and Doppler was performed. The study quality was technically adequate. There is no prior echocardiogram noted for this patient. Left Ventricle: The left ventricle is normal in size and wall thickness. Left ventricular systolic function is normal. The ejection fraction is estimated to be 55-60%. There are no focal wall motion abnormalities. Diastolic function could not be accurately assessed due to atrial fibrillation. Right Ventricle: The right ventricle is normal in size and function. Atria: Both atria are normal in size. The interatrial septum grossly appears intact with no obvious evidence for an atrial septal defect. Mitral Valve: The mitral valve is normal in structure and function. There is trace mitral regurgitation. Aortic Valve: The aortic valve is normal in structure and function. There is no aortic valve stenosis. No aortic regurgitation is present. Tricuspid Valve: The tricuspid valve is normal in structure and function. There is mild tricuspid regurgitation. The right ventricular systolic pressure is estimated to be at least 17 mmHg based on an estimated right atrial pressure of 3 mm Hg. Pulmonic Valve: The pulmonic valve is normal in structure and function. There is no pulmonic valvular regurgitation. Great Vessels: The aortic root is normal size. The dimensions of the ascending aorta are normal. The IVC is of normal diameter and collapses greater than 50% with a sniff. This suggests a low right atrial pressure of 3 mm Hg. Pericardium/ Pleura There is no pericardial effusion. There is no pleural effusion. MMode/2D Measurements & Calculations LVIDd: 3.9 cm LVOT diam: 1.9 cm LVIDs: 2.8 cm Ao root diam: 2.9 cm FS: 28.2 % asc Aorta Diam: 3.2 cm IVSd: 1.2 cm LVPWd: 1.2 cm LV goodwin. diameter/BSA (cm/m^2): 2.0 LV sys. diameter/BSA (cm/m^2): 1.4 LA dimension: 3.0 cm RA long axis: 5.1 cm LA A2 area: 12.7 cm2 LA A4 area: 17.6 cm2 LA length (vol): 4.6 cm LA vol: 41.5 ml LA vol index: 20.8 ml/m2 TAPSE_phl: 2.2 cm Doppler Measurements & Calculations Ao V2 max: 97.6 cm/sec LVOT Max Jad: 103.0 cm/sec Ao V2 mean: 74.8 cm/sec LV V1 max P.2 mmHg Ao max P.0 mmHg LV V1 VTI: 20.0 cm Ao mean P.0 mmHg AUDIE(I,D): 3.0 cm2 Ao V2 VTI: 18.6 cm AUDIE(V,D): 3.0 cm2 sev ratio: 1.1 AUDIE indexed to BSA (cm^2/m^2): 1.5 TR max jad: 185.0 cm/sec SV(LVOT): 56.7 ml TR max P.7 mmHg AV VR_phl: 1.1 AUDIE(VTI)/BSA_phl: 1.5 Reading Physician:07:29 PM
--- NOTE | 2022-03-10 19:18 | DI.NM.S_ITS ---
DATE OF SERVICE: 03/10/2022 PROCEDURE PERFORMED: Pharmacologic vasodilator stress and rest myocardial perfusion imaging with gating to assess ejection fraction and regional wall motion. ORDERING PROVIDER: Dr. Sterling Mcclain. INDICATIONS: The patient is a 72-year-old hypertensive diabetic female with exertional dyspnea and chest tightness. CARDIAC STRESS: Per protocol, 0.4 mg of regadenoson was infused with a normal hemodynamic response. She had no anginal symptoms and her resting ECG appears normal without any significant ST-segment shifts or arrhythmias with pharmacologic stress. Per protocol, 26.0 millicuries of technetium-99m Myoview was injected and she was imaged 20 minutes later using a gated SPECT acquisition protocol. Earlier in the day while at rest, she had been injected with 12.1 millicuries of technetium-99m Myoview and was imaged 15 minutes later, again using a gated SPECT acquisition protocol. FINDINGS: 1. Raw data: There is fair myocardial tracer uptake with some subdiaphragmatic tracer activity adjacent to the inferior wall. Minimal breast shadows are noted. The lung/heart ratio is normal at 0.28 with a borderline elevated TID ratio of 1.29 which is nonspecific. 2. Quantitated gated SPECT: Post-stress ejection fraction is 72% with a suggestion of possible hypokinesis in the distal anteroapical segment. The resting images show a more uniform pattern of contractility with no evidence for any wall motion abnormality. Resting ejection fraction is 72% with an normal resting end-diastolic volume of 68 mL. 3. Myocardial perfusion imaging: Post-stress supine images show increased tracer activity adjacent to the inferior wall which produces some relatively reduced tracer activity in the mid and distal anterior wall. While this defect improves on the prone images, it does not completely resolve. The resting images show a more uniform pattern of tracer activity with improvement in the mid to distal anteroapical segments. IMPRESSION: 1. Probable abnormal myocardial perfusion study with moderately reduced specificity.. 2. Predominantly reversible defect in the mid to distal anterior wall and anteroapex that improves, but does not completely resolve, on the prone images suggesting possible ischemia in this distribution. However, this finding has reduced specificity because of the increased tracer activity adjacent to the inferior wall that could produce artifactual relative reduction of counts anteriorly. Yet, with the suggestion of a wall motion abnormality in the mid to distal anterior wall, there is concern for possible ischemic heart disease. 3. Preserved left ventricular systolic function although with a suggestion of reduced contractility in the mid to distal anterior wall and apex. While left ventricular volumes are normal, post-stress volumes are larger than the resting volumes. This is nonspecific with the use of vasodilator stress but could also be an indicator of ischemia.. 4. No angina or ECG evidence of ischemia with pharmacologic vasodilator stress. Cassie Mosqueda - QUE/catherine/marbin doc#: [id number]/job#: [id number] dd: 03/10/2022 16:44:00 dt: 03/10/2022 19:02:00 DICTATING /COPIES TO: Quinton Eugene MD COPIES MNE: CARMEN;
== END ==
PROVIDERS: PCP Family Medicine; Referring Provider Internal Medicine Cardiovascular Disease; Visit Provider Internal Medicine Cardiovascular Disease
DX: I48.91 Unspecified atrial fibrillation; R06.09 Other forms of dyspnea; R07.89 Other chest pain; I07.1 Rheumatic tricuspid insufficiency; I10 Essential (primary) hypertension; E11.9 Type 2 diabetes mellitus without complications; Z20.822 Contact with and (suspected) exposure to COVID-19
CPT/HCPCS: 78452; 87635; 93017; 93306; A9502; J2785

== ENCOUNTER → 2022-03-13 09:52 | Outpatient (CLI) | payer MEDICARE, SELFPAY ==
[2022-03-13 10:44] LABS: COVID19 -Nasal RAPID Negative (Negative)
== END ==
PROVIDERS: PCP Family Medicine; Referring Provider Internal Medicine; Visit Provider Internal Medicine
DX: Z20.822 Contact with and (suspected) exposure to COVID-19 (principal)
CPT/HCPCS: 87635; C9803

== ENCOUNTER → 2022-03-13 12:04 | Outpatient (CLI) | payer MEDICARE, SELFPAY ==
--- NOTE | 2022-03-19 09:27 | PM.PFT.1 ---
Pulmonary Function Test Referral & Results Date Patient Seen: 03/13/22 Requesting provider: Sterling Mcclain Results: The spirometry demonstrates an FVC of 2.89 L which is 83% of predicted. The FEV1 was measured at 2.01 L which is 76% of predicted. The FEV1/FVC ratio was 69 which is 91% of predicted. Following the administration of bronchodilator there was a 33% improvement in FEF 25-75%. Lung volumes show an SVC of 2.98 L which is 92% of predicted. The diffusing capacity was measured at 18.30 which is 61% of predicted. No hemoglobin value was provided, so no correction for potential anemia could be made, if appropriate. The maximum voluntary ventilation was reduced Interpretation: This study demonstrates possibly mild obstructive lung disease based on reduction FEV1 although FEV1/FVC ratio is preserved there is evidence of benefit post bronchodilator in small airway flow based on improvement in FEF 25-75%. Shape a flow volume loop also supports the presence of obstructive lung disease to some degree Lung volumes are normal There is a moderate reduction diffusing capacity suggesting disease at the capillary alveolar level Clinical correlation suggested
== END ==
PROVIDERS: PCP Family Medicine; Referring Provider Nurse Practitioner; Visit Provider Nurse Practitioner
DX: R06.09 Other forms of dyspnea (principal); J45.909 Unspecified asthma, uncomplicated
CPT/HCPCS: 94060; 94726; 94729

== ENCOUNTER → 2022-08-05 06:37 | Outpatient (CLI) | payer MEDICARE, SELFPAY ==
[2022-08-05 11:29] LABS: Alanine Aminotransferase 19 IU/L (<35); Albumin 4.2 g/dL (3.5-5.0); Albumin Globulin Ratio 1.7 (1.0-2.8); Alkaline Phosphatase 75 U/L (38-126); Aspartate Aminotransferase 24 IU/L (14-36); BUN Creatinine Ratio 26.3 (6-22); Bilirubin Total 0.5 mg/dL (0.2-1.3); Blood Urea Nitrogen 20 mg/dL (7-17); Calcium 9.2 mg/dL (8.4-10.2); Carbon Dioxide 34 mmol/L (22-32); Chloride 96 mmol/L (98-107); Cholesterol 148 mg/dL (140-199); Estimated Glomerular Filt Rate > 60 mL/min (>60); Globulin 2.5 g/dL (1.7-4.1); Glucose 116 mg/dL (80-110); HDL Cholesterol 56 mg/dL (40-60); HEMOLYSIS < 15 (0-50); LDL Cholesterol Calculated 68 mg/dL (<100); Potassium 3.9 mmol/L (3.4-5.1); Sodium 135 mmol/L (137-145); Total Protein 6.7 g/dL (6.3-8.2); Triglycerides 119 mg/dL (35-150)
[2022-08-05 11:46] LABS: Thyroid Stimulating Hormone 3.51 uIU/mL (0.47-4.68)
== END ==
PROVIDERS: PCP Family Medicine; Referring Provider Internal Medicine Cardiovascular Disease; Visit Provider Internal Medicine Cardiovascular Disease
DX: I10 Essential (primary) hypertension (principal); E78.2 Mixed hyperlipidemia
CPT/HCPCS: 36415; 80053; 80061; 83735; 84443

== ENCOUNTER → 2022-09-15 08:35 | Outpatient (CLI) | payer MEDICARE, SELFPAY ==
[2022-09-15 10:49] LABS: Add Manual Diff / Slide Review NO; Basophils Absolute Auto 100 /uL (0-100); Basophils Percent Auto 0.8 % (0-2); Eosinophils Absolute Auto 200 /uL (0-450); Eosinophils Percent Auto 3.2 % (2-4); Hematocrit 38.4 % (36-46); Hemoglobin 13.1 g/dL (12.0-16.0); Lymphocytes Absolute Auto 2200 /uL (1100-4500); Lymphocytes Percent Auto 31.8 % (25-40); Mean Corpuscular HGB Conc 34.1 % (30-36); Mean Corpuscular Hemoglobin 31.6 PG (26-34); Mean Corpuscular Volume 92.6 fL (80-100); Monocytes Absolute Auto 600 /uL (0-900); Monocytes Percent Auto 8.7 % (3-14); Neutrophils Absolute Auto 3800 /uL (1500-7000); Neutrophils Percent Auto 55.5 % (50-75); Platelet Count 174 X10^3/uL (150-400); Red Blood Cell Count 4.14 X10^6/uL (4.0-5.2); Red Cell Distribution Width 13.7 % (11.6-14.8); White Blood Cell Count 6.8 X10^3/uL (4.5-11.0)
[2022-09-15 11:26] LABS: BUN Creatinine Ratio 27.5 (6-22); Blood Urea Nitrogen 22 mg/dL (7-17); Carbon Dioxide 33 mmol/L (22-32); Chloride 97 mmol/L (98-107); Estimated Glomerular Filt Rate > 60 mL/min (>60); Glucose 123 mg/dL (80-110); HEMOLYSIS < 15 (0-50); Sodium 134 mmol/L (137-145)
== END ==
PROVIDERS: PCP Family Medicine; Referring Provider Internal Medicine Cardiovascular Disease; Visit Provider Internal Medicine Cardiovascular Disease
DX: I48.0 Paroxysmal atrial fibrillation (principal)
CPT/HCPCS: 36415; 80048; 85025

== ENCOUNTER → 2022-11-13 12:12 | Outpatient (CLI) | payer MEDICARE, SELFPAY ==
--- NOTE | 2022-11-13 | DI.MRI.S_ITS ---
PROCEDURE: MR SHOULDER RT WO CON INDICATIONS: Rotator Cuff Syndrome. Right shoulder pain TECHNIQUE: Noncontrast oblique coronal T2 fast spin echo with fat saturation, oblique sagittal T1 spin echo and T2 fast spin echo with fat saturation, axial T1 spin echo and T2 fast spin echo with fat saturation through the shoulder. COMPARISON: [facility] [place], CR, XR SHOULDER 2+ VIEWS RIGHT, 03/08/2019, 13:10. [facility], MR, MR SHOULDER RT WO CON, 02/17/2019, 19:20. FINDINGS: Image quality: Excellent. Rotator cuff: There is full-thickness tear of the supraspinatus tendon with mild tendon retraction and mild supraspinatus muscle atrophy. There is high-grade partial-thickness tear of the infraspinatus. There may be full-thickness tear of the superior fibers of the infraspinatus tendon. There is mild infraspinatus muscle atrophy. Severe tendinosis of the subscapularis tendon with intermediate grade partial thickness tear. No subscapularis muscle atrophy. Bones and bursae: No bone marrow contusions or fractures. Moderate acromioclavicular and glenohumeral joint degeneration. The acromion demonstrates conventional anatomy, without an os acromiale. There is small to moderate glenohumeral joint effusion. Capsule and soft tissues: Diffuse degenerative labral fraying. There is moderate tendinosis of the long head of the biceps tendon which demonstrates normal location and morphology. No biceps tendon rupture. The rotator interval appears normal, without fibrosis. The coracohumeral ligament is normal in thickness. IMPRESSION: 1. Full-thickness tear of the supraspinatus tendon with tendon retraction and mild supraspinatus muscle atrophy. 2. At least high-grade partial thickness tear of the infraspinatus tendon. There is mild infraspinatus muscle atrophy. 3. Severe tendinosis of the subscapularis tendon with intermediate grade partial thickness tear. 4. Moderate tendinosis of the long head of the biceps tendon. 5. Moderate acromioclavicular and glenohumeral joint degeneration. 6. Small to moderate glenohumeral joint effusion. Dictated by: Janis Kilgore M.D. on 11/13/2022 at 14:56 Approved by: Jansi Kilgore M.D. on 11/13/2022 at 15:15
== END ==
PROVIDERS: PCP Family Medicine; Referring Provider Orthopaedic Surgery; Visit Provider Orthopaedic Surgery
DX: M75.121 Complete rotator cuff tear or rupture of right shoulder, not specified as traumatic (principal); M19.011 Primary osteoarthritis, right shoulder; M25.411 Effusion, right shoulder; M77.8 Other enthesopathies, not elsewhere classified
CPT/HCPCS: 73221

== ENCOUNTER → 2022-12-11 11:42 | Outpatient (CLI) | payer MEDICARE, SELFPAY | PROVIDERS: PCP Family Medicine; Referring Provider Nurse Practitioner; Visit Provider Nurse Practitioner | DX: R06.02 Shortness of breath (principal) | CPT/HCPCS: 94618 ==

== ENCOUNTER → 2023-03-13 15:01 | Outpatient (CLI) | payer MEDICARE, SELFPAY ==
--- NOTE | 2023-03-13 | DI.MRI.S_ITS ---
PROCEDURE: MR CERVICAL SPINE WO CON INDICATIONS: CERVICAL RADICULOPATHY TECHNIQUE: Noncontrast sagittal T1 spin echo and T2 fast spin echo, sagittal STIR, foraminal oblique sagittal T2 fast spin echo, and axial gradient echo or T2 fast spin echo through the cervical spine. COMPARISON: None. FINDINGS: Image quality: Excellent. Alignment and Curvature: There is normal bony alignment. Bone Marrow: Marrow demonstrates normal overall signal. Spinal Cord: Visualized spinal cord has normal size and signal. No cerebellar tonsillar herniation. Paraspinous Soft Tissues: No paravertebral masses. Prevertebral soft tissues are normal in thickness. C2-C3: Disc space is maintained. Posterior disc osteophyte complex results in mild central stenosis. No foraminal stenosis C3-C4: Disc space is maintained. Hypertrophic arthropathy. No central stenosis. Degenerative left facet fusion. No foraminal stenosis C4-C5: Disc space narrowing with arthropathy present. Posterior disc osteophyte complex results in mild central stenosis. There is degenerative right facet fusion. No foraminal stenosis. C5-C6: Disc space narrowing with arthropathy and posterior disc osteophyte complex associated with moderate central stenosis and flattening the ventral surface of the cord. Severe left and moderate right foraminal stenosis C6-C7: Disc space narrowing with posterior disc osteophyte complex also results in moderate central stenosis eccentric to the right. Arthropathy associated with moderate left and mild right foraminal stenosis C7-T1: Disc space narrowing and hypertrophic uncovertebral joints. No central stenosis. No foraminal stenosis IMPRESSION: Multilevel degenerative disc disease and arthropathy results in varying degrees of central and foraminal stenosis including moderate central stenosis C5-6 and C6-7. Severe left foraminal stenosis C5-6 Approved by: Grzegorz Keys M.D. on 03/13/2023 at 18:18
== END ==
PROVIDERS: PCP Family Medicine; Referring Provider Family Medicine; Visit Provider Family Medicine
DX: M47.22 Other spondylosis with radiculopathy, cervical region (principal); M48.02 Spinal stenosis, cervical region; M50.10 Cervical disc disorder with radiculopathy, unspecified cervical region
CPT/HCPCS: 72141

== ENCOUNTER → 2023-05-04 14:20 | Outpatient (CLI) | payer OTHER, SELFPAY ==
--- NOTE | 2023-05-04 14:22 | DI.MRI.S_ITS ---
PROCEDURE: MR LUMBAR SPINE WO CON INDICATIONS: Low back pain, unspecified TECHNIQUE: Noncontrast sagittal T1 spin echo and T2 fast echo, sagittal STIR, and T2 fast spin echo through the lumbar spine. In cases with scoliosis, additional coronal T2 fast spin echo may be performed. COMPARISON: None. FINDINGS: Image quality: This examination is limited by involuntary motion artifact. Alignment and Curvature: Mild dextroconvex scoliotic curvature is seen. Bone Marrow: Marrow is of normal overall signal. No acute vertebral body compression fractures. Vertebroplasty cement is again seen at the L2 level. Spinal Cord: Conus medullaris terminates at the L1 level. Visualized cord demonstrates normal signal and size. Paraspinous Soft Tissues: No paravertebral masses. Incidental note is made of a retroaortic left renal vein. T12-L1: No significant abnormality is seen. L1-L2: At least moderate loss of disc height and disc signal can be seen. Moderate generalized disc bulge is seen. There is a central disc osteophyte protrusion seen. Mild to moderate facet hypertrophy is seen. There is mild right-sided and at least moderate left-sided neural foraminal narrowing. Moderate central canal narrowing is seen. These imaging findings have progressed compared to the prior study. L2-L3: Moderate loss of disc height is seen. Loss of disc signal is seen. Moderate disc bulge is seen, which is eccentric to the left. Moderate facet joint hypertrophy is seen. Associated hypertrophy of the ligamentum flavum can be seen. Moderate bilateral neural foraminal narrowing is seen. Moderate central canal narrowing is seen. These imaging findings have progressed compared to the prior study. L3-L4: Moderate loss of disc height is seen. Loss of disc signal is seen. Reactive marrow endplate changes are seen which are hypointense on T1-weighted imaging and hyperintense on T2 weighted imaging, which is most consistent with edema (Modic type I changes). Moderate disc bulge is seen, which is eccentric to the right. There is a superimposed central disc protrusion. There is a focal annular fissure seen posteriorly. Moderate facet joint hypertrophy is seen. There is moderate right-sided and [id number] left-sided neural foraminal narrowing. At least moderate central canal narrowing is seen, as on series 7, image 5. These degenerative changes are mildly worse than in 2020. L4-L5: Moderate loss of disc height is seen. Loss of disc signal is seen. At least moderate disc bulge is seen, which is eccentric to the right. Moderate facet joint hypertrophy is seen. There is at least moderate right-sided neural foraminal narrowing can with a mild degree of compression upon the exiting right L4 nerve root. There is [id number] left-sided neural foraminal narrowing. Mild to moderate central canal narrowing is seen. When comparison is made with the prior images, these findings are similar. L5-S1: Moderate loss of disc height is seen. Loss of disc signal is seen. Moderate generalized disc bulge is seen. Moderate facet joint hypertrophy is seen. There is mild right-sided and moderate left-sided neural foraminal narrowing. Mild central canal narrowing is seen. When comparison is made with the prior images, these findings are similar. 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 IMPRESSION: Multiple levels of lumbar spine degenerative change can be seen, which are progressed at L1-L2, L2-L3, and L3-L4 compared to 2020. Mild dextroconvex scoliotic curvature is seen. Additional findings: Retroaortic left renal vein S2 presumed tear left cyst, stable Dictated by: Enoc Phan M.D. on 05/04/2023 at 16:04 Approved by: Enoc Pahn M.D. on 05/04/2023 at 16:09
== END ==
PROVIDERS: PCP Family Medicine; Referring Provider Orthopaedic Surgery Orthopaedic Surgery of the Spine; Visit Provider Orthopaedic Surgery Orthopaedic Surgery of the Spine
DX: M47.816 Spondylosis without myelopathy or radiculopathy, lumbar region (principal); M47.817 Spondylosis without myelopathy or radiculopathy, lumbosacral region; M41.9 Scoliosis, unspecified; M54.50 Low back pain, unspecified
CPT/HCPCS: 72148

== ENCOUNTER → 2023-08-05 10:58 | Outpatient (CLI) | payer MEDICARE, SELFPAY ==
[2023-08-05 13:15] LABS: Alanine Aminotransferase 17 IU/L (<35); Albumin 4.1 g/dL (3.5-5.0); Albumin Globulin Ratio 1.6 (1.0-2.8); Alkaline Phosphatase 76 U/L (38-126); Aspartate Aminotransferase 24 IU/L (14-36); BUN Creatinine Ratio 18.9 (6-22); Bilirubin Total 0.6 mg/dL (0.2-1.3); Blood Urea Nitrogen 20 mg/dL (7-17); Calcium 9.5 mg/dL (8.4-10.2); Carbon Dioxide 36 mmol/L (22-32); Chloride 101 mmol/L (98-107); Estimated Glomerular Filt Rate 56 mL/min (>60); Globulin 2.6 g/dL (1.7-4.1); Glucose 198 mg/dL (80-110); HEMOLYSIS < 15 (0-50); Potassium 3.8 mmol/L (3.4-5.1); Sodium 138 mmol/L (137-145); Total Protein 6.7 g/dL (6.3-8.2)
[2023-08-05 13:44] LABS: TSH w/ Reflex to FT4 3.59 uIU/mL (0.47-4.68)
== END ==
PROVIDERS: PCP Family Medicine; Referring Provider Nurse Practitioner Family; Visit Provider Nurse Practitioner Family
DX: I48.0 Paroxysmal atrial fibrillation (principal)
CPT/HCPCS: 36415; 80053; 84443

== ENCOUNTER 2023-10-12 15:51 | Emergency (ER) | payer MEDICARE, SELFPAY ==
[2023-10-12 15:56] VITALS: BP 136/64; PULSE 55; RESP 16; TEMP 36.8; O2SAT 97; BMI 30.4
--- NOTE | 2023-10-12 16:26 | ED.GENADULT ---
HPI - General Adult General Chief complaint: Extremity Injury, Upper Stated complaint: lt arm inj/fell Time Seen by Provider: 10/12/23 16:13 Source: patient Mode of arrival: Family Vehicle History of Present Illness HPI narrative: Patient is a 73-year-old female who is here for evaluation of a left wrist fracture. [place]. He was noted to have a comminuted distal radius fracture. She was placed in a splint. She also sustained lacerations to her left elbow. She was sent here for further evaluation. She also states she was having left-sided rib discomfort. She did not hit her head. No loss of consciousness. She stated that she was stepping backwards and her sandal got caught on a rug causing her to fall. No hip pain. She has been ambulatory. No pain medication prior to arrival. Related Data Home Medications Medication Instructions Recorded Confirmed apixaban 5 mg tablet (Eliquis) 5 mg PO BID 12/17/22 10/12/23 pioglitazone 15 mg tablet 15 mg PO DAILY 12/17/22 10/12/23 prasugrel 10 mg tablet 10 mg PO DAILY 12/17/22 10/12/23 amiodarone 200 mg tablet 200 mg PO DAILY 10/12/23 10/12/23 fluoxetine 20 mg capsule 20 mg PO DAILY 10/12/23 10/12/23 hydrochlorothiazide 25 mg tablet 25 mg PO DAILY 10/12/23 10/12/23 losartan 25 mg tablet 12.5 mg PO DAILY 10/12/23 10/12/23 metoprolol succinate 50 mg 50 mg PO DAILY 10/12/23 10/12/23 tablet,extended release 24 hr Previous Rx's Medication Instructions Recorded rosuvastatin 20 mg tablet See Rx Instructions .Route 12/10/21 .COMPLEX #90 tabs hydrocodone 5 mg-acetaminophen 325 1 tab PO Q6H PRN pain #14 tabs 10/12/23 mg tablet ondansetron 4 mg disintegrating 4 mg PO Q6H PRN nausea and 10/12/23 tablet vomiting #14 tabs Allergies Allergy/AdvReac Type Severity Reaction Status Date / Time garlic Allergy Intermediate NAUSEA AND Verified 10/12/23 16:05 VOMITING levofloxacin [From Levaquin] Allergy Mild Insomnia Verified 10/12/23 16:05 lisinopril Allergy Mild COUGH Verified 10/12/23 16:05 morphine Allergy Unknown NAUSEA AND Verified 10/12/23 16:05 VOMITING promethazine [PROMETHAZINE] Allergy Unknown ITCHING Verified 10/12/23 16:05 UNKNOWN SEVERITY PER PT codeine [CODEINE] AdvReac Severe VOMITING Verified 10/12/23 16:05 oxycodone [OXYCODONE] AdvReac Severe SEVERE Verified 10/12/23 16:05 VOMITING hydrocodone [HYDROCODONE] AdvReac Mild VOMITING Verified 10/12/23 16:05 Review of Systems Review of Systems Narrative: See HPI Patient History Medical History History of squamous cell carcinoma Screening for viral disease Arthritis Depression Back pain Shoulder injury Hyperlipidemia Hypertension Surgical History (Updated 10/11/20 @ 13:42 by Capri Pritchard CMA) Status post ORIF of fracture of ankle Social History Smoking Status: Never smoker Smoking Status: Never smoker alcohol intake frequency: 0-2 drinks per day Substance Use Type: marijuana Exam Initial Vital Signs Initial Vital Signs: Vital Signs Temperature 98.2 F 10/12/23 15:56 Pulse Rate 55 L 10/12/23 15:56 Respiratory Rate 16 10/12/23 15:56 Blood Pressure 136/64 10/12/23 15:56 Pulse Oximetry 97 10/12/23 15:56 Oxygen Delivery Method Room Air 10/12/23 15:56 HENMT Head: normal to inspection and normocephalic Chest Chest: No crepitus and tenderness (Left-sided lateral chest wall) Cardio Pulses: radial pulses present on the left Skin Other: Superficial abrasions lateral aspect of the left elbow no active bleeding. Neuro Sensory Exam: no sensory deficits noted Extrem Other: Deformity to the left wrist. Procedures Orthopedic Splinting/Casting Injury #1: Side: left Upper Extremity Injury Location: wrist Upper Extremity Immobilizer: sugar tong splint Post splinting neuro exam: no change Post splinting vascular exam: no change Placed by: Provider Course Orders Ordered: ED Orders 10/12/23 16:26 XR ribs LT min 3V w CXR1V Stat Discontinued Medications Hydrocodone Bitart/Acetaminophen (Hydrocodone/Acet 5/325 Prepack) 1 bottle MISC DIRECTED ONE Stop: 10/12/23 17:29 Hydromorphone HCl (Hydromorphone 1 Mg Inj) 1 mg IM NOW ONE Stop: 10/12/23 16:27 Last Admin: 10/12/23 16:33 Dose: 1 mg Documented By: ANTIONE Ondansetron HCl (Ondansetron 4 Mg Odt) 4 mg SL NOW ONE Stop: 10/12/23 16:27 Last Admin: 10/12/23 16:38 Dose: 4 mg Documented By: ANTIONE Ondansetron HCl (Ondansetron 4 Mg Odt Prepack) 1 bottle MISC DIRECTED ONE Stop: 10/12/23 17:29 Vital Signs Vital signs: Vital Signs - 8 hr 10/12/23 15:56 Temperature 98.2 F Pulse Rate 55 L Respiratory Rate 16 Blood Pressure 136/64 Pulse Oximetry 97 Oxygen Delivery Method Room Air Medical Decision Making Imaging Data Extremity x-ray #1: Radiologist's Impression: PROCEDURE: XR WRIST LT MIN 3V INDICATIONS: Left wrist Injury TECHNIQUE: 3 views of the wrist were acquired. COMPARISON: [facility], , XR WRIST LT MIN 3V, 10/18/2017, 13:48. FINDINGS: Bones: Comminuted distal radial fracture with intra-articular extension and dorsal displacement of the distal fragment. Soft tissues: No suspicious soft tissue calcifications. IMPRESSION: Comminuted intra-articular displaced distal radial fracture. rib x-ray: Radiologist's Impression: PROCEDURE: XR RIBS LT MIN 3V W CXR1V INDICATIONS: Left lateral rib pain after fall TECHNIQUE: 2 views of the ribs were acquired, along with a single view chest. COMPARISON: None. FINDINGS: Surgical changes and devices: None. Bones and chest wall: Minimally displaced fracture involving left posterior lateral 6 rib is seen. No other rib fracture is noted. No suspicious bony lesions. Overlying soft tissues appear unremarkable. Lungs and pleura: No pleural effusions or pneumothorax. Lungs appear clear. Mediastinum: Mediastinal contours appear normal. Heart size is normal. IMPRESSION: Minimally displaced left posterior lateral 6 rib fracture. No acute cardiopulmonary pathology. MDM Narrative Medical decision making narrative: Patient did have an x-ray from the [facility] which shows distal radius fracture. She was also was complaining of left rib pain. X-ray shows left rib fracture. Has a abrasions on her elbow as well. The patient was placed in a splint. Patient states that it has pain medication was in his her allergy although she states that she really only gets nauseous with them. She tolerated the Dilaudid and oral nausea medication while here in the ER. Will send her home with pain medication. We discussed rib fractures. Discussed return precautions. Discussed that she does need to follow-up with orthopedic surgery. She expressed understanding and agreement with plan. Discharge Plan Departure Patient Disposition: Home Clinical Impression: Closed fracture of left wrist, Fracture of rib Instructions: DI for Rib Fracture, DI for Wrist Fracture, How to Take Care of Your Splint Activity Restrictions/Additional Instructions: The splint that was placed today should be treated like a cast. You need to keep it on and keep it clean and keep it dry. Use the pain medication with the nausea medication as needed. You will need follow-up with an orthopedic provider. Can contact them with the number provided below. Return to the emergency department for new symptoms. Prescriptions: New ondansetron 4 mg tablet,disintegrating 4 mg PO Q6H PRN (Reason: nausea and vomiting) Qty: 14 0RF hydrocodone-acetaminophen 5-325 mg tablet 1 tab PO Q6H PRN (Reason: pain) Qty: 14 0RF No Action rosuvastatin 20 mg tablet See Rx Instructions .ROUTE .COMPLEX Qty: 90 0RF Dose Instruction: TAKE ONE TABLET BY MOUTH AT BEDTIME Rx Instructions: TAKE ONE TABLET BY MOUTH AT BEDTIME fluoxetine 20 mg capsule 20 mg PO DAILY losartan 25 mg tablet 12.5 mg PO DAILY metoprolol succinate 50 mg tablet extended release 24 hr 50 mg PO DAILY hydrochlorothiazide 25 mg tablet 25 mg PO DAILY amiodarone 200 mg tablet 200 mg PO DAILY Eliquis 5 mg tablet 5 mg PO BID pioglitazone 15 mg tablet 15 mg PO DAILY prasugrel 10 mg tablet 10 mg PO DAILY Referrals: Jeffrey Valentin MD [Primary Care Provider] - Vernon Candelario MD [Physician] - Stand Alone Forms: Patient Portal/API
[2023-10-12] MEDS: HYDROMORPHONE 1 MG INJ IM (16:33)
[2023-10-12] MEDS: ONDANSETRON 4 MG ODT SL (16:38)
[2023-10-12] MEDS: ONDANSETRON 4 MG ODT PREPACK 1 BOTTLE MISC (17:39)
[2023-10-12] MEDS: HYDROCODONE/ACET 5/325 PREPACK 1 BOTTLE MISC (17:39)
[2023-10-12 17:56] VITALS: BP 123/81; PULSE 87; RESP 18; O2SAT 93
== END 2023-10-12 17:52 | disposition home or self-care (01) ==
PROVIDERS: Emergency Provider Emergency Medicine; PCP Family Medicine
DX: S52.572A Other intraarticular fracture of lower end of left radius, initial encounter for closed fracture (principal); S22.32XA Fracture of one rib, left side, initial encounter for closed fracture; W01.0XXA Fall on same level from slipping, tripping and stumbling without subsequent striking against object, initial encounter
CPT/HCPCS: 29125; 71101; 96372; 99283; 99284; J1170

== ENCOUNTER 2024-07-07 12:51 | Emergency (ER) | payer MEDICARE, OTHER, SELFPAY ==
[2024-07-07 13:24] VITALS: BP 156/74; PULSE 55; RESP 18; TEMP 36.6; O2SAT 98; BMI 31.9
--- NOTE | 2024-07-07 13:28 | DI.RAD.S_ITS ---
PROCEDURE: XR HAND LT MIN 3V INDICATIONS: injury/pain/ swelling/bruising TECHNIQUE: 3 views of the hand(s) acquired. COMPARISON: [facility], CR, XR HAND 3+ VIEWS LEFT, 10/13/2023, 16:47. [facility], CR, XR HAND 3+ VIEWS LEFT, 03/01/2024, 11:03. FINDINGS: Bones: Prior internal fixation of distal radius is seen. No significant bony union is noted at distal radial fracture site. Increased radiolucency surrounding distal radial fixation hardware is seen, concerning for hardware loosening. Old nonunited fracture involving ulnar styloid is also noted. There is osteopenia. Old healed deformity involving 4th proximal phalangeal neck. Osteoarthritic changes are noted throughout left hand and wrist joints. No other fracture or dislocation. Soft tissues: Marked soft tissue swelling over dorsum of left hand is seen over the metacarpal bones. No suspicious soft tissue calcifications. IMPRESSION: Old nonunited fractures involving distal radius and ulnar styloid. Concerning for fixation hardware loosening in distal radius suggest clinical correlation. Old healed 4th proximal phalangeal neck fracture. Significant dorsal left hand soft tissue swelling. No acute fracture or dislocation. Left hand and wrist joint osteoarthritis. No radiographic evidence of osteomyelitis. Dictated by: Tye Lazaro M.D. on 07/07/2024 at 13:49 Approved by: Tye Lazaro M.D. on 07/07/2024 at 13:53
--- NOTE | 2024-07-07 14:09 | ED.UPPEXIN ---
HPI - Extremity Injury (Upper) <Dulce Delgado PA-C - Last Filed: 07/07/24 14:51> General Chief Complaint: Extremity Injury, Upper Stated Complaint: left hand pain- wants x ray Time Seen by Provider: 07/07/24 13:39 Source: patient Mode of arrival: Ambulatory History of Present Illness HPI narrative: Ms. Augusto Carias is a pleasant 74-year-old female with a past medical history of prior left wrist fractures with surgical hardware last October who presents to the emergency department for left dorsal hand pain and swelling after she hit it on the corner of a chair yesterday. Patient was gardening when she accidentally hit the back left of her hand on the corner of a stationary chair. She now has bruising pain and swelling of the dorsal aspect of the left hand with pain primarily over the 3rd metacarpal. She is still has good sensation and movement of her fingers however the swelling is preventing her from fully extending the 2nd through 5th fingers. Reports that she does have chronic deformity of the left wrist due to prior fractures. She denies any other injuries, no open wounds. Related Data Home Medications Medication Instructions Recorded Confirmed apixaban 5 mg tablet (Eliquis) 5 mg PO BID 12/17/22 10/12/23 pioglitazone 15 mg tablet 15 mg PO DAILY 12/17/22 10/12/23 prasugrel HCl 10 mg tablet 10 mg PO DAILY 12/17/22 10/12/23 amiodarone 200 mg tablet 200 mg PO DAILY 10/12/23 10/12/23 fluoxetine 20 mg capsule 20 mg PO DAILY 10/12/23 10/12/23 hydrochlorothiazide 25 mg tablet 25 mg PO DAILY 10/12/23 10/12/23 losartan 25 mg tablet 12.5 mg PO DAILY 10/12/23 10/12/23 metoprolol succinate 50 mg 50 mg PO DAILY 10/12/23 10/12/23 tablet,extended release 24 hr Previous Rx's Medication Instructions Recorded rosuvastatin 20 mg tablet See Rx Instructions .Route 12/10/21 .COMPLEX #90 tabs hydrocodone 5 mg-acetaminophen 325 1 tab PO Q6H PRN pain #14 tabs 10/12/23 mg tablet ondansetron 4 mg disintegrating 4 mg PO Q6H PRN nausea and 10/12/23 tablet vomiting #14 tabs Allergies Allergy/AdvReac Type Severity Reaction Status Date / Time garlic Allergy Intermediate NAUSEA AND Verified 10/12/23 16:05 VOMITING levofloxacin [From Levaquin] Allergy Mild Insomnia Verified 10/12/23 16:05 lisinopril Allergy Mild COUGH Verified 10/12/23 16:05 morphine Allergy Unknown NAUSEA AND Verified 10/12/23 16:05 VOMITING promethazine [PROMETHAZINE] Allergy Unknown ITCHING Verified 10/12/23 16:05 UNKNOWN SEVERITY PER PT codeine [CODEINE] AdvReac Severe VOMITING Verified 10/12/23 16:05 oxycodone [OXYCODONE] AdvReac Severe SEVERE Verified 10/12/23 16:05 VOMITING hydrocodone [HYDROCODONE] AdvReac Mild VOMITING Verified 10/12/23 16:05 Review of Systems <Dulce Delgado PA-C - Last Filed: 07/07/24 14:51> Review of Systems ROS Unobtainable: All systems reviewed & are unremarkable except as noted in HPI and below Patient History <Dulce Delgado PA-C - Last Filed: 07/07/24 14:51> Medical History History of squamous cell carcinoma Screening for viral disease Arthritis Depression Back pain Shoulder injury Hyperlipidemia Hypertension Surgical History Status post ORIF of fracture of ankle Social History Smoking Status: Never smoker Smoking Status: Never smoker alcohol intake frequency: 0-2 drinks per day Exam <Dulce Delgado PA-C - Last Filed: 07/07/24 14:51> Narrative Exam Narrative: GENERAL: 74 year old patient appears stated age. Well-developed patient, in no acute distress. HEAD: Atraumatic. Normocephalic. NECK: Trachea midline. Cervical ROM intact. RESPIRATORY: Nonlabored respirations. ?Speaking in clear, full sentences. EXTREMITIES: Chronic deformity of left wrist, radial aspect. Strong radial pulse, brisk capillary refill in the fingers. There is significant edema and ecchymosis on the dorsal aspect of the left hand, no open wounds. Chronic limited range of motion of left wrist. NEURO: AOx3. ?Clear speech. Sensation intact to light touch in the distribution of median, ulnar, radial nerves of the left hand. SKIN: No wounds or rashes. There is ecchymosis on left dorsal hand. Initial Vital Signs Initial Vital Signs: Vital Signs Temperature 98 F 07/07/24 13:24 Pulse Rate 55 L 07/07/24 13:24 Respiratory Rate 18 07/07/24 13:24 Blood Pressure 156/74 H 07/07/24 13:24 Pulse Oximetry 98 07/07/24 13:24 Oxygen Delivery Method Room Air 07/07/24 13:24 <Kriss Baird DO - Last Filed: 07/15/24 09:13> Initial Vital Signs Initial Vital Signs: Vital Signs Temperature 98 F 07/07/24 13:24 Pulse Rate 55 L 07/07/24 13:24 Respiratory Rate 18 07/07/24 13:24 Blood Pressure 156/74 H 07/07/24 13:24 Pulse Oximetry 98 07/07/24 13:24 Oxygen Delivery Method Room Air 07/07/24 13:24 Course <Dulce Delgado PA-C - Last Filed: 07/07/24 14:51> Orders Ordered: ED Orders 07/07/24 13:28 XR hand LT min 3V Stat Vital Signs Vital signs: Vital Signs - 8 hr 07/07/24 13:24 Temperature 98 F Pulse Rate 55 L Respiratory Rate 18 Blood Pressure 156/74 H Pulse Oximetry 98 Oxygen Delivery Method Room Air <DO Scotty Branch Last Filed: 07/15/24 09:13> Orders Ordered: ED Orders 07/07/24 13:28 XR hand LT min 3V Stat Vital Signs Vital signs: Vital Signs - 8 hr 07/07/24 13:24 Temperature 98 F Pulse Rate 55 L Respiratory Rate 18 Blood Pressure 156/74 H Pulse Oximetry 98 Oxygen Delivery Method Room Air MDM - Extremity Injury (Upper) <YUSEF Snell Last Filed: 07/07/24 14:51> Medical Records Attestation: I reviewed the patient's medical records. Medical records narrative: ED visit 10/12/2023 for closed fracture of left wrist. Imaging Data Left Hand X-ray: Radiologist's Impression: PROCEDURE: XR HAND LT MIN 3V INDICATIONS: injury/pain/ swelling/bruising TECHNIQUE: 3 views of the hand(s) acquired. COMPARISON: [facility] [place], [place], XR HAND 3+ VIEWS LEFT, 10/13/2023, 16:47. [facility] [place], CR, XR HAND 3+ VIEWS LEFT, 03/01/2024, 11:03. FINDINGS: Bones: Prior internal fixation of distal radius is seen. No significant bony union is noted at distal radial fracture site. Increased radiolucency surrounding distal radial fixation hardware is seen, concerning for hardware loosening. Old nonunited fracture involving ulnar styloid is also noted. There is osteopenia. Old healed deformity involving 4th proximal phalangeal neck. Osteoarthritic changes are noted throughout left hand and wrist joints. No other fracture or dislocation. Soft tissues: Marked soft tissue swelling over dorsum of left hand is seen over the metacarpal bones. No suspicious soft tissue calcifications. IMPRESSION: Old nonunited fractures involving distal radius and ulnar styloid. Concerning for fixation hardware loosening in distal radius suggest clinical correlation. Old healed 4th proximal phalangeal neck fracture. Significant dorsal left hand soft tissue swelling. No acute fracture or dislocation. Left hand and wrist joint osteoarthritis. No radiographic evidence of osteomyelitis. [facility] Narrative Medical decision making narrative: 74-year-old female with a past medical history of prior left wrist fractures with surgical hardware last October who presents to the emergency department for left dorsal hand pain and swelling after she hit it on the corner of a chair yesterday. Differential diagnosis includes but is not limited to hand fracture, contusion, hematoma, sprain, strain, etc. On exam patient is in no acute distress, nontoxic appearing, vital signs appropriate. Her left hand is neurovascularly intact. She is large area of swelling and ecchymosis of the dorsal left hand, tenderness primarily over the 3rd metacarpal. She has chronic deformity of left wrist, no current wrist pain or bruising. X-ray left hand obtained revealing old nonunited fractures involving the distal radius and ulnar styloid. Concerning for fixation hardware loosening the distal radius suggest clinical correlation. Old healed 4th proximal phalangeal neck fracture. Significant dorsal left hand soft tissue swelling. No acute fracture or dislocation. Left hand and wrist joint osteoarthritis. No radiographic evidence of osteomyelitis. Patient's left hand and wrist were placed into an Merlin wrap for support, she is feeling much better. Declines need for pain medication. She is provided with a printed copy of her x-ray report and all chronic/incidental findings were discussed. Recommended rice therapy, Tylenol for pain, follow up with ortho for further management of her chronic left wrist concerns. ED return precautions discussed. Patient verbalized understanding of all information and is stable for discharge home. Discharge Plan Departure Patient Disposition: Home Clinical Impression: Contusion of dorsum of left hand Instructions: DI for Contusion Activity Restrictions/Additional Instructions: Dear Ms. Matthews, Thank you for coming to the emergency department. The x-ray of your left hand did not reveal any new fractures or dislocations of the left hand. You do have a large hematoma/contusion and soft tissue swelling. You do have some chronic bony changes from your prior surgery, I do recommend he follow up with a hand surgeon for further evaluation. Please use RICE therapy for your pain in addition to acetaminophen. Rest the painful area. Ice the area of pain/swelling for at least 15 minutes, 4x a day. Compress the area of swelling using a brace, wrap, or splint if applied. Elevate the painful or swollen extremity by supporting it above the level of the heart with pillows when sitting or laying. Please follow up with your primary care doctor within the next 2-3 days for ER follow-up. (If you do not have a PCP you can call [phone]. ?to schedule an appointment with an [facility] Primary Care Provider) IF YOU DEVELOP ANY NEW OR WORSENING SYMPTOMS, RETURN TO THE ER! Please read the attached instructions, they highlight more specific treatments and interventions for you at home. Thank you for letting me participate in your care, Dulce Delgado PA-C Prescriptions: No Action rosuvastatin 20 mg tablet See Rx Instructions .ROUTE .COMPLEX Qty: 90 0RF Dose Instruction: TAKE ONE TABLET BY MOUTH AT BEDTIME Rx Instructions: TAKE ONE TABLET BY MOUTH AT BEDTIME ondansetron 4 mg tablet,disintegrating 4 mg PO Q6H PRN (Reason: nausea and vomiting) Qty: 14 0RF hydrocodone-acetaminophen 5-325 mg tablet 1 tab PO Q6H PRN (Reason: pain) Qty: 14 0RF fluoxetine 20 mg capsule 20 mg PO DAILY losartan 25 mg tablet 12.5 mg PO DAILY metoprolol succinate 50 mg tablet extended release 24 hr 50 mg PO DAILY hydrochlorothiazide 25 mg tablet 25 mg PO DAILY amiodarone 200 mg tablet 200 mg PO DAILY Eliquis 5 mg tablet 5 mg PO BID pioglitazone 15 mg tablet 15 mg PO DAILY prasugrel HCl 10 mg tablet 10 mg PO DAILY Referrals: Jeffrey Valentin MD [Primary Care Provider] - Stand Alone Forms: Patient Portal/API/Survey ED Sign-out <Kriss Baird DO - Last Filed: 07/15/24 09:13> Cosign ED Attending Ajithature Attestation: I was available for consultation.
[2024-07-07 15:16] VITALS: BP 155/73; PULSE 51; RESP 14; O2SAT 96
== END 2024-07-07 15:18 | disposition home or self-care (01) ==
PROVIDERS: Emergency Provider Physician Assistant; PCP Family Medicine
DX: S60.222A Contusion of left hand, initial encounter (principal); W22.8XXA Striking against or struck by other objects, initial encounter
CPT/HCPCS: 73130; 99281; 99283